=== PATIENT | female | born 1995 | race American Indian/Alaskan Native ===

== ENCOUNTER 2018-12-16 13:30 | Emergency (ER) | payer SELFPAY ==
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
--- NOTE | 2018-12-16 15:00 | XRay Report ---
Rib series 2 views INDICATION: Bilateral rib pain IMPRESSION: Heart size is normal. The lungs are clear. No rib fracture identified. Signer Name: Carl Estrada MD Signed: 12/16/2018 2:56 PM Workstation Name: [id number]
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
[2018-12-16] MEDS ORDERED: IBUPROFEN PO ONE (16:22)
[2018-12-16 16:39] VITALS: BP 140/84
== END 2018-12-16 18:52 | disposition home or self-care (01) ==
LOC: ED 13:30
DX: S20.211A Contusion of right front wall of thorax, initial encounter (principal); V89.2XXA Person injured in unspecified motor-vehicle accident, traffic, initial encounter; Y93.89 Activity, other specified; Y92.410 Unspecified street and highway as the place of occurrence of the external cause; Y99.8 Other external cause status